=== PATIENT | female | born 1925 | race Caucasian/White ===

== ENCOUNTER 2016-10-25 21:11 | Inpatient (IN) | payer MEDICARE ==
[~2016-10-25] VITALS: Ht 172.7 cm; Wt 77.3 kg
[~2016-10-25 21:11] MED LIST: ACET325T9 PO; CALC-474 PO; DABI150C PO; DABI75CA3 PO; ERGO500027 PO; FAMO20TA5 PO; FURO-69 PO; HYDR-2762 PO; LORA2TAB PO; LOSA50TA2 PO; MAGN400O7 PO; MELA3TAB2 PO; METO25TA4 PO; METO50TA2 PO; MULT1TAB52 PO; RANI150T6 PO; SERT100T PO; ZOLP5TAB PO
--- NOTE | 2016-10-25 21:46 | PHYS DOC ---
Past Medical History Past Medical History: A-Fib, Anxiety, Cancer, CHF, Depression, GERD, Hypertension, Other Additional Past Medical Histor: RECTAL CANCER, OSTEOPOROSIS, GOUT Past Surgical History: Cancer Surgery, Other Additional Past Surgical Histo: COLOSTOMY Alcohol Use: None Drug Use: None Adult General Chief Complaint Chief Complaint: OSTOMY PROBLEM HPI HPI Patient is a 89 year old female who presents with complaint of blood from ostomy site. Patient was brought to the emergency department by EMS from [facility] after patient was found to have stool mixed with blood coming from her colostomy. Staff did not note any evidence of bleeding from the surface of the stoma and thus sent the patient to the emergency department for further evaluation. Patient has history of colon cancer status post left-sided colectomy. Patient follows with Dr. Jalloh at [facility] currently. The patient denies any pain, nausea, and states that currently she feels at her baseline state of health. Review of Systems Review of Systems Constitutional: Denies fever or chills [] Eyes: Denies change in visual acuity, redness, or eye pain [] HENT: Denies nasal congestion or sore throat [] Respiratory: Denies cough or shortness of breath [] Cardiovascular: Denies chest pain or edema [] GI: Bleeding from colostomy, denies abdominal pain, nausea, or vomiting [] : Denies dysuria or hematuria [] Musculoskeletal: Denies back pain or joint pain [] Integument: Denies rash or skin lesions [] Neurologic: Denies headache, focal weakness or sensory changes [] Current Medications Current Medications Current Medications Medications (Trade) Dose Ordered Sig/Adam Start Time Stop Time Status Last Admin Dose Admin Sodium Chloride 500 ml @ 500 mls/hr Q1H 10/25/16 22:00 10/25/16 22:21 DC 10/25/16 22:20 500 MLS/HR Allergies Allergies Allergies Coded Allergies Type Severity Reaction Last Updated Verified iodine Allergy Intermediate HIVES 03/05/15 Yes Physical Exam Physical Exam Constitutional: Alert, afebrile, appears in chronically poor health. [] HENT: Normocephalic, atraumatic, bilateral external ears normal, oropharynx moist, no oral exudates, nose normal. [] Eyes: PERRLA, EOMI, conjunctiva normal, no discharge. [] Neck: Normal range of motion, no tenderness, supple, no stridor. [] Cardiovascular:Heart rate regular rhythm, no murmur [] Lungs & Thorax: Bilateral breath sounds clear to auscultation [] Abdomen: Left-sided colostomy, stoma appears pink, no active external bleeding, blood mixed with stool present in ostomy bag, abdomen is soft and nontender to palpation. [] Skin: Warm, dry, no erythema, no rash. [] Back: No tenderness, no CVA tenderness. [] Extremities: No tenderness, no cyanosis, no clubbing,1+ edema in the bilateral lower extremities. [] Neurologic: Alert and oriented X 3, normal motor function, normal sensory function, no focal deficits noted. [] Current Patient Data Vital Signs Vital Signs Date Time Temp Pulse Resp B/P (MAP) Pulse Ox O2 Delivery O2 Flow Rate FiO2 10/25/16 22:30 64 31 155/74 (101) 92 Room Air 10/25/16 21:15 97.6 97.6 Lab Values Laboratory Tests Test 10/25/16 21:38 10/25/16 22:00 10/25/16 22:29 10/25/16 22:33 Stool Occult Blood Positive (NEG) White Blood Count 8.1 x10^3/uL (4.0-11.0) Red Blood Count 5.00 x10^6/uL (3.50-5.40) Hemoglobin 15.9 g/dL (12.0-15.5) H Hematocrit 47.6 % (36.0-47.0) H Mean Corpuscular Volume 95 fL (79-100) Mean Corpuscular Hemoglobin 32 pg (25-35) Mean Corpuscular Hemoglobin Concent 34 g/dL (31-37) Red Cell Distribution Width 14.0 % (11.5-14.5) Platelet Count 210 x10^3/uL (140-400) Neutrophils (%) (Auto) 70 % (31-73) Lymphocytes (%) (Auto) 21 % (24-48) L Monocytes (%) (Auto) 6 % (0-9) Eosinophils (%) (Auto) 2 % (0-3) Basophils (%) (Auto) 0 % (0-3) Neutrophils # (Auto) 5.7 x10^3uL (1.8-7.7) Lymphocytes # (Auto) 1.7 x10^3/uL (1.0-4.8) Monocytes # (Auto) 0.5 x10^3/uL (0.0-1.1) Eosinophils # (Auto) 0.2 x10^3/uL (0.0-0.7) Basophils # (Auto) 0.0 x10^3/uL (0.0-0.2) Urine Collection Type U cath Urine Color Red Urine Clarity Turbid Urine pH 7.0 Urine Specific [place] 1.020 Urine Protein 100 mg/dL (NEG-TRACE) Urine Glucose (UA) Negative mg/dL (NEG) Urine Ketones (Stick) 15 mg/dL (NEG) Urine Blood Large (NEG) Urine Nitrite Positive (NEG) Urine Bilirubin Moderate (NEG) Urine Urobilinogen Dipstick 1.0 mg/dL (0.2 mg/dL) Urine Leukocyte Esterase Large (NEG) Urine RBC Tntc /HPF (0-2) Urine WBC Tntc /HPF (0-4) Urine Squamous Epithelial Cells Few /LPF Urine Bacteria Many /HPF (0-FEW) Urine Hyaline Casts Few /HPF Urine Mucus Slight /LPF Prothrombin Time 18.8 SEC (11.7-14.0) H Prothrombin Time INR 1.7 (0.8-1.1) H PTT 62 SEC (24-38) H Sodium Level 144 mmol/L (136-145) Potassium Level 4.1 mmol/L (3.5-5.1) Chloride Level 106 mmol/L (98-107) Carbon Dioxide Level 34 mmol/L (21-32) H Anion Gap 4 (6-14) L Blood Urea Nitrogen 19 mg/dL (7-20) Creatinine 1.1 mg/dL (0.6-1.0) H Estimated GFR (Cockcroft-Gault) 46.8 BUN/Creatinine Ratio 17 (6-20) Glucose Level 134 mg/dL (70-99) H Calcium Level 9.5 mg/dL (8.5-10.1) Total Bilirubin 0.4 mg/dL (0.2-1.0) Aspartate Amino Transferase (AST) 19 U/L (15-37) Alanine Aminotransferase (ALT) 19 U/L (14-59) Alkaline Phosphatase 79 U/L (46-116) Total Protein 7.4 g/dL (6.4-8.2) Albumin 3.0 g/dL (3.4-5.0) L Albumin/Globulin Ratio 0.7 (1.0-1.7) L Laboratory Tests 10/25/16 22:00 Laboratory Tests 10/25/16 22:33 EKG EKG Not performed [] Radiology/Procedures Radiology/Procedures 3 view acute abdominal series interpreted by me: No pulmonary infiltrates or effusions, no free air under the diaphragm, distended loops of large and small bowel consistent with ileus [] Course & Med Decision Making Course & Med Decision Making Pertinent Labs and Imaging studies reviewed. (See chart for details) Patient started on IV fluids in the emergency department. Patient was found to have evidence of urinary tract infection and started on IV Rocephin for treatment. Due to presence of GI bleeding and reported significant blood loss from correction, the patient will need admission to the hospital for repeat lab work and further observation to ensure resolution of bleeding. I spoke with Dr. Morse who was on-call for Dr. Jalloh and she accepted care patient in hospital. A consult was placed to Dr. Stephen of gastroenterology to follow with patient in hospital. Dragon Disclaimer Dragon Disclaimer This electronic medical record was generated, in whole or in part, using a voice recognition dictation system. Departure Departure Impression: Primary Impression: Acute GI bleeding Additional Impression: Urinary tract infection Disposition: 09 ADMITTED INPATIENT Admitting Physician: Monika Morse Condition: GUARDED Referrals: OSBALDO JALLOH MD (PCP) Problem Qualifiers Additional Impression: Urinary tract infection Urinary tract infection type: site unspecified Hematuria presence: with hematuria Qualified Codes: N39.0 - Urinary tract infection, site not specified ; R31.9 - Hematuria, unspecified SWAPNIL SEGAL MD Oct 25, 2016 21:46
[2016-10-25] MEDS ORDERED: IV NORMAL SALINE 500ML BAG 500 ML IV SCH (22:00)
[2016-10-25 22:17] LABS: BASO % 0 % (0-3); EOS % 2 % (0-3); HEMATOCRIT 47.6 % (36.0-47.0); HEMOGLOBIN 15.9 g/dL (12.0-15.5); LYMPH # 1.7 x10^3/uL (1.0-4.8); LYMPH % 21 % (24-48); MEAN CORPUSCULAR HEMOGLOBIN 32 pg (25-35); MEAN CORPUSCULAR HGB CONC 34 g/dL (31-37); MEAN CORPUSCULAR VOLUME 95 fL (79-100); MONO % 6 % (0-9); NEUT % 70 % (31-73); PLATELET COUNT 210 x10^3/uL (140-400); WHITE BLOOD COUNT 8.1 x10^3/uL (4.0-11.0)
[2016-10-25 22:22] LABS: NEG OBC FOB NEG; POS OBC FOB POS
[2016-10-25 22:39] LABS: BILIRUBIN,URINE MODERATE (NEG); GLUCOSE,URINE NEGATIVE (NEG); NITRITE,URINE POSITIVE (NEG); PROTEIN,URINE 100 mg/dL (NEG-TRACE)
[2016-10-25 22:43] LABS: BACTERIA,URINE MANY /HPF (0-FEW); RBC,URINE TNTC /HPF (0-2); SQUAMOUS EPITHELIAL CELL,UR FEW /LPF; WBC,URINE TNTC /HPF (0-4)
[2016-10-25 23:07] LABS: CALCIUM 9.5 mg/dL (8.5-10.1); CREATININE 1.1 mg/dL (0.6-1.0); GFR 46.8; POTASSIUM 4.1 mmol/L (3.5-5.1)
[2016-10-25 23:10] LABS: INR 1.7 (0.8-1.1); PROTHROMBIN TIME PATIENT 18.8 SEC (11.7-14.0)
[2016-10-25 23:13] LABS: ALBUMIN/GLOBULIN RATIO 0.7 (1.0-1.7); TOTAL BILIRUBIN 0.4 mg/dL (0.2-1.0); TOTAL PROTEIN 7.4 g/dL (6.4-8.2)
[2016-10-26] VITALS (7 sets, daily range): BP systolic 123–146; BP diastolic 66–92
[2016-10-26] MEDS ORDERED: ONDANSETRON PF 4 MG/2 ML VIAL. IV PRN (00:30)
[2016-10-26] MEDS: IV NORMAL SALINE 1000ML BAG 1,000 ML IV SCH ×3 (01:30→20:30)
[2016-10-26] MEDS ORDERED: ONDA4TAB7 PO (02:08)
[2016-10-26] MEDS ORDERED: FAMO20TA5 PO (02:08)
[2016-10-26] MEDS ORDERED: CHOL10003 PO (02:08)
[2016-10-26] MEDS ORDERED: MAGN400T3 PO (02:08)
[2016-10-26] MEDS ORDERED: SERT50TA8 PO (02:08)
[2016-10-26] MEDS ORDERED: LORA0.5T96 PO (02:08)
[2016-10-26] MEDS ORDERED: GUAI5SYR PO (02:08)
[2016-10-26] MEDS ORDERED: MULT-114 PO (02:08)
--- NOTE | 2016-10-26 08:35 | RAD ---
Examination: Acute abdomen series History: History of bleed into the colostomy Comparison: 12/26/2012 Findings: The cardiomediastinal silhouette grossly appears unremarkable. There is no acute infiltrate or visualized pneumothorax. Mild air distended bowel loops in the abdomen likely secondary to ileus. A right hip hardware identified. Osseous demineralization. Moderate degenerative changes thoraco lumbar spine. Impression: 1. No acute cardiopulmonary findings. 2. Mild air distended bowel loops likely secondary to ileus.
--- NOTE | 2016-10-26 12:19 | PDOC1 ---
History and Physical Date of Admission Date of Admission DATE: 10/26/16 TIME: 12:09 Identification/Chief Complaint Chief Complaint blood per colostomy tube. noted to have pyuria. Problems: Source Source: Chart review, Patient History of Present Illness History of Present Illness 89 year old white female resident of a [facility] with dementia and a colostomy with history of rectal cancer and who has chronic atrial fibrillation treated with pradaxa noted to have blood in colostomy mixed with stoiol and sent to [facility] ER. noted to have heme positive stool . not anemic. noted to have pyuria and was started on iv rocephin., poor historian. denies abdominal pain . Past Medical History Cardiovascular: AFIB, HTN, Other (chronic diastolic congestive heart failure) CENTRAL NERVOUS SYSTEM: Other (dementia) GI: Other (rectal cancer) Psych: Depression Musculoskeletal: Other (osteoarthritis) Rheumatologic: Gout, Other Infectious disease: Other (history of uti) Past Surgical History Past Surgical History: Other (colostomy) Family History Family History not contributory Social History Smoke: No ALCOHOL: none Drugs: None Current Problem List Problem List Problems Medical Problems: (1) Acute GI bleeding Status: Acute (2) Urinary tract infection Status: Acute Problems: Current Medications Current Medications Current Medications Sodium Chloride 500 ml @ 500 mls/hr Q1H IV Last administered on 10/25/16 22:20 ; Start 10/25/16 at 22:00; Stop 10/25/16 at 22:21; Status DC Ondansetron HCl (Zofran) 4 mg PRN Q8HRS PRN IV NAUSEA/VOMITING; Start 10/26/16 at 00:30; Stop 10/27/16 at 00:29 Sodium Chloride 1,000 ml @ 100 mls/hr Q10H IV Last administered on 10/26/16 01 :30; Start 10/26/16 at 00:30; Stop 10/27/16 at 00:29 Ceftriaxone Sodium 1 gm/ Sodium Chloride 50 ml @ 100 mls/hr Q24H IV ; Start 10/26/16 at 23:00 Ceftriaxone Sodium 50 ml @ 100 mls/hr 1X ONCE IV Last administered on 00:48; Start 10/26/16 at 01:00; Stop 10/26/16 at 01:29; Status DC Active Scripts Active Pradaxa (Dabigatran Etexilate Mesylate) 75 Mg Capsule 75 Mg PO BID Lasix (Furosemide) 20 Mg Tablet 20 Mg PO DAILY Reported Zofran (Ondansetron Hcl) 4 Mg Tablet 1 Tab PO PRN Q6HRS PRN Vitamin D3 (Cholecalciferol (Vitamin D3)) 1,000 Unit Tablet 3,000 Unit PO DAILY Sertraline Hcl 50 Mg Tablet 50 Mg PO HS Multivitamins With Minerals (Multivitamin With Minerals) 1 Each Tablet 1 Each PO DAILY Magnesium Oxide 400 Mg Tablet 1 Tab PO DAILY Guaifenesin Dm Syrup (Guaifenesin/Dextromethorphan) 5 Ml Syrup 5 Ml PO PRN Q4HRS PRN Ativan (Lorazepam) 0.5 Mg Tablet 0.5 Mg PO BID Famotidine 20 Mg Tablet 20 Mg PO HS Tylenol (Acetaminophen) 325 Mg Tablet 1-2 Tab PO PRN Metoprolol Tartrate 25 Mg Tablet 1 Tab PO BID Allergies Allergies: Coded Allergies: iodine (Verified Allergy, Intermediate, HIVES, 03/05/15) ROS Review of System other ROS negative Gastrointestinal: Yes Other (blood in colostomy) Physical Exam General: Alert HEENT: Atraumatic Lungs: Clear to auscultation Heart: S1S2, no murmurs Abdomen: Soft, No tenderness, No hepatosplenomegaly, Other (colostomy with small amount of blood tinged liquid) Extremities: No edema Skin: No rashes Neuro: Normal speech, Other (does not know correct year or month or recite name of current president of [facility]) Psych/Mental Status: Mood NL Vitals Vitals Vital Signs Date Time Temp Pulse Resp B/P (MAP) Pulse Ox O2 Delivery O2 Flow Rate FiO2 10/26/16 11:00 97.7 60 18 139/73 (95) 94 Room Air 97.7 Labs Labs Laboratory Tests Test 10/25/16 21:38 10/25/16 22:00 10/25/16 22:29 10/25/16 22:33 Stool Occult Blood Positive (NEG) White Blood Count 8.1 x10^3/uL (4.0-11.0) Red Blood Count 5.00 x10^6/uL (3.50-5.40) Hemoglobin 15.9 g/dL (12.0-15.5) Hematocrit 47.6 % (36.0-47.0) Mean Corpuscular Volume 95 fL (79-100) Mean Corpuscular Hemoglobin 32 pg (25-35) Mean Corpuscular Hemoglobin Concent 34 g/dL (31-37) Red Cell Distribution Width 14.0 % (11.5-14.5) Platelet Count 210 x10^3/uL (140-400) Neutrophils (%) (Auto) 70 % (31-73) Lymphocytes (%) (Auto) 21 % (24-48) Monocytes (%) (Auto) 6 % (0-9) Eosinophils (%) (Auto) 2 % (0-3) Basophils (%) (Auto) 0 % (0-3) Neutrophils # (Auto) 5.7 x10^3uL (1.8-7.7) Lymphocytes # (Auto) 1.7 x10^3/uL (1.0-4.8) Monocytes # (Auto) 0.5 x10^3/uL (0.0-1.1) Eosinophils # (Auto) 0.2 x10^3/uL (0.0-0.7) Basophils # (Auto) 0.0 x10^3/uL (0.0-0.2) Urine Collection Type U cath Urine Color Red Urine Clarity Turbid Urine pH 7.0 Urine Specific [place] 1.020 Urine Protein 100 mg/dL (NEG-TRACE) Urine Glucose (UA) Negative mg/dL (NEG) Urine Ketones (Stick) 15 mg/dL (NEG) Urine Blood Large (NEG) Urine Nitrite Positive (NEG) Urine Bilirubin Moderate (NEG) Urine Urobilinogen Dipstick 1.0 mg/dL (0.2 mg/dL) Urine Leukocyte Esterase Large (NEG) Urine RBC Tntc /HPF (0-2) Urine WBC Tntc /HPF (0-4) Urine Squamous Epithelial Cells Few /LPF Urine Bacteria Many /HPF (0-FEW) Urine Hyaline Casts Few /HPF Urine Mucus Slight /LPF Prothrombin Time 18.8 SEC (11.7-14.0) Prothromb Time International Ratio 1.7 (0.8-1.1) Activated Partial Thromboplast Time 62 SEC (24-38) Sodium Level 144 mmol/L (136-145) Potassium Level 4.1 mmol/L (3.5-5.1) Chloride Level 106 mmol/L (98-107) Carbon Dioxide Level 34 mmol/L (21-32) Anion Gap 4 (6-14) Blood Urea Nitrogen 19 mg/dL (7-20) Creatinine 1.1 mg/dL (0.6-1.0) Estimated GFR (Cockcroft-Gault) 46.8 BUN/Creatinine Ratio 17 (6-20) Glucose Level 134 mg/dL (70-99) Calcium Level 9.5 mg/dL (8.5-10.1) Total Bilirubin 0.4 mg/dL (0.2-1.0) Aspartate Amino Transf (AST/SGOT) 19 U/L (15-37) Alanine Aminotransferase (ALT/SGPT) 19 U/L (14-59) Alkaline Phosphatase 79 U/L (46-116) Total Protein 7.4 g/dL (6.4-8.2) Albumin 3.0 g/dL (3.4-5.0) Albumin/Globulin Ratio 0.7 (1.0-1.7) Laboratory Tests Test 10/25/16 21:38 10/25/16 22:00 10/25/16 22:29 10/25/16 22:33 Stool Occult Blood Positive (NEG) White Blood Count 8.1 x10^3/uL (4.0-11.0) Red Blood Count 5.00 x10^6/uL (3.50-5.40) Hemoglobin 15.9 g/dL (12.0-15.5) Hematocrit 47.6 % (36.0-47.0) Mean Corpuscular Volume 95 fL (79-100) Mean Corpuscular Hemoglobin 32 pg (25-35) Mean Corpuscular Hemoglobin Concent 34 g/dL (31-37) Red Cell Distribution Width 14.0 % (11.5-14.5) Platelet Count 210 x10^3/uL (140-400) Neutrophils (%) (Auto) 70 % (31-73) Lymphocytes (%) (Auto) 21 % (24-48) Monocytes (%) (Auto) 6 % (0-9) Eosinophils (%) (Auto) 2 % (0-3) Basophils (%) (Auto) 0 % (0-3) Neutrophils # (Auto) 5.7 x10^3uL (1.8-7.7) Lymphocytes # (Auto) 1.7 x10^3/uL (1.0-4.8) Monocytes # (Auto) 0.5 x10^3/uL (0.0-1.1) Eosinophils # (Auto) 0.2 x10^3/uL (0.0-0.7) Basophils # (Auto) 0.0 x10^3/uL (0.0-0.2) Urine Collection Type U cath Urine Color Red Urine Clarity Turbid Urine pH 7.0 Urine Specific [place] 1.020 Urine Protein 100 mg/dL (NEG-TRACE) Urine Glucose (UA) Negative mg/dL (NEG) Urine Ketones (Stick) 15 mg/dL (NEG) Urine Blood Large (NEG) Urine Nitrite Positive (NEG) Urine Bilirubin Moderate (NEG) Urine Urobilinogen Dipstick 1.0 mg/dL (0.2 mg/dL) Urine Leukocyte Esterase Large (NEG) Urine RBC Tntc /HPF (0-2) Urine WBC Tntc /HPF (0-4) Urine Squamous Epithelial Cells Few /LPF Urine Bacteria Many /HPF (0-FEW) Urine Hyaline Casts Few /HPF Urine Mucus Slight /LPF Prothrombin Time 18.8 SEC (11.7-14.0) Prothromb Time International Ratio 1.7 (0.8-1.1) Activated Partial Thromboplast Time 62 SEC (24-38) Sodium Level 144 mmol/L (136-145) Potassium Level 4.1 mmol/L (3.5-5.1) Chloride Level 106 mmol/L (98-107) Carbon Dioxide Level 34 mmol/L (21-32) Anion Gap 4 (6-14) Blood Urea Nitrogen 19 mg/dL (7-20) Creatinine 1.1 mg/dL (0.6-1.0) Estimated GFR (Cockcroft-Gault) 46.8 BUN/Creatinine Ratio 17 (6-20) Glucose Level 134 mg/dL (70-99) Calcium Level 9.5 mg/dL (8.5-10.1) Total Bilirubin 0.4 mg/dL (0.2-1.0) Aspartate Amino Transf (AST/SGOT) 19 U/L (15-37) Alanine Aminotransferase (ALT/SGPT) 19 U/L (14-59) Alkaline Phosphatase 79 U/L (46-116) Total Protein 7.4 g/dL (6.4-8.2) Albumin 3.0 g/dL (3.4-5.0) Albumin/Globulin Ratio 0.7 (1.0-1.7) Images Images acute abdominal series negative VTE Prophylaxis Ordered VTE Prophylaxis Devices: Yes VTE Pharmacological Prophylaxi: No Assessment/Plan Assessment/Plan acute lower GI bleed. blood tinge liquid noted in colostomy pyuria. suspect uti colostomy with history of rectal cancer dementia chronic diastolic congestive heart failure chronic atrial fibrillation hypertension PLAN consult dr. Stephen await urine culture continue iv rocephin clear liquid diet d/c pradaxa labs tomorrow d/c iv fluids ALEX SERRANO MD Oct 26, 2016 12:19
[2016-10-26] MEDS ORDERED: ONDANSETRON ODT 4 MG TAB.RAPDIS. PO PRN (12:30)
[2016-10-26] MEDS: LORazepam 0.5 MG TABLET PO SCH ×2 (13:12→20:08)
[2016-10-26] MEDS: MULTIVITAMIN with MINERAL TABLET. PO SCH (13:12)
[2016-10-26] MEDS: MAGNESIUM OXIDE 400 MG TABLET PO SCH (13:12)
[2016-10-26] MEDS: CHOLECALCIFEROL (VITAMIN D3) 1,000 UNIT TABLET PO SCH (13:13)
[2016-10-26] MEDS: METOPROLOL TART IMMED RELEASE 25 MG TABLET. PO SCH ×2 (13:13→20:11)
[2016-10-26 13:18] LABS: CALCIUM 8.2 mg/dL (8.5-10.1); CREATININE 0.9 mg/dL (0.6-1.0); POTASSIUM 4.5 mmol/L (3.5-5.1)
[2016-10-26] MEDS: ACETAMINOPHEN 325 MG TABLET. PO PRN (13:22)
--- NOTE | 2016-10-26 14:45 | PDOC2 ---
CONSULT Date of Consult Date of Consult DATE: 10/26/16 TIME: 14:41 Reason for Consult Reason for Consult: Colostomy bleeding Identification/Chief Complaint Chief Complaint Colostomy bleeding Problems: History of Present Illness Reason for Visit: 89 year old patient with dementia admitted with confusion and possible bleeding via colostomy. Hg 15.9. No pain is noted. Weight and appetite are stable. She otherwise has no additional complaints. Past Medical History Cardiovascular: AFIB, HTN, Other (chronic diastolic congestive heart failure) CENTRAL NERVOUS SYSTEM: Dementia, Other (dementia) GI: Other (rectal cancer) Heme/Onc: Iron deficiency Anemia Psych: Depression Musculoskeletal: Other (osteoarthritis) Rheumatologic: Gout, Other Infectious disease: Other (history of uti) Past Surgical History Past Surgical History: Colon Resection, Other (colostomy) Social History No ALCOHOL: none Drugs: None Current Problem List Problem List Problems Medical Problems: (1) Acute GI bleeding Status: Acute (2) Urinary tract infection Status: Acute Current Medications Current Medications Current Medications Sodium Chloride 500 ml @ 500 mls/hr Q1H IV Last administered on 10/25/16 22:20 ; Start 10/25/16 at 22:00; Stop 10/25/16 at 22:21; Status DC Ondansetron HCl (Zofran) 4 mg PRN Q8HRS PRN IV NAUSEA/VOMITING; Start 10/26/16 at 00:30; Stop 10/27/16 at 00:29 Sodium Chloride 1,000 ml @ 100 mls/hr Q10H IV Last administered on 10/26/16 01 :30; Start 10/26/16 at 00:30; Stop 10/27/16 at 00:29 Ceftriaxone Sodium 1 gm/ Sodium Chloride 50 ml @ 100 mls/hr Q24H IV ; Start 10/26/16 at 23:00 Ceftriaxone Sodium 50 ml @ 100 mls/hr 1X ONCE IV Last administered on 00:48; Start 10/26/16 at 01:00; Stop 10/26/16 at 01:29; Status DC Acetaminophen (Tylenol) 650 mg PRN Q6HRS PRN PO MILD PAIN / TEMP Last administered on 10/26/16 13:22; Start 10/26/16 at 12:30 Lorazepam (Ativan) 0.5 mg BID PO Last administered on 10/26/16 13:12; Start 10/26/16 at 13:00 Famotidine (Pepcid) 20 mg QHS PO ; Start 10/26/16 at 21:00 Magnesium Oxide (Magnesium Oxide) 400 mg DAILY PO Last administered on 13:12; Start 10/26/16 at 13:00 Metoprolol Tartrate (Lopressor) 25 mg BID PO Last administered on 10/26/16 13: 13; Start 10/26/16 at 13:00 Multivitamins (Thera M Plus) 1 tab DAILY PO Last administered on 10/26/16 13:12 ; Start 10/26/16 at 13:00 Sertraline HCl (Zoloft) 75 mg QHS PO ; Start 10/26/16 at 21:00 Vitamin D (Vitamin D3) 3,000 unit DAILY PO Last administered on 10/26/16 13:13 ; Start 10/26/16 at 13:00 Ondansetron HCl (Zofran Odt) 4 mg PRN Q6HRS PRN PO NAUSEA/VOMITING; Start at 12:30 Active Scripts Active Pradaxa (Dabigatran Etexilate Mesylate) 75 Mg Capsule 75 Mg PO BID Lasix (Furosemide) 20 Mg Tablet 20 Mg PO DAILY Reported Zofran (Ondansetron Hcl) 4 Mg Tablet 1 Tab PO PRN Q6HRS PRN Vitamin D3 (Cholecalciferol (Vitamin D3)) 1,000 Unit Tablet 3,000 Unit PO DAILY Sertraline Hcl 50 Mg Tablet 50 Mg PO HS Multivitamins With Minerals (Multivitamin With Minerals) 1 Each Tablet 1 Each PO DAILY Magnesium Oxide 400 Mg Tablet 1 Tab PO DAILY Guaifenesin Dm Syrup (Guaifenesin/Dextromethorphan) 5 Ml Syrup 5 Ml PO PRN Q4HRS PRN Ativan (Lorazepam) 0.5 Mg Tablet 0.5 Mg PO BID Famotidine 20 Mg Tablet 20 Mg PO HS Tylenol (Acetaminophen) 325 Mg Tablet 1-2 Tab PO PRN Metoprolol Tartrate 25 Mg Tablet 1 Tab PO BID Allergies Allergies: Coded Allergies: iodine (Verified Allergy, Intermediate, HIVES, 03/05/15) Physical Exam General: Cooperative HEENT: Atraumatic Lungs: Clear to auscultation Heart: Regular rate, Normal S1, Normal S2 Abdomen: Normal bowel sounds, Soft, Other (colostomy with blood) Extremities: No tenderness/swelling (colostomy with blood) Vitals VITALS Vital Signs Date Time Temp Pulse Resp B/P (MAP) Pulse Ox O2 Delivery O2 Flow Rate FiO2 10/26/16 13:13 60 139/73 10/26/16 11:00 97.7 18 94 Room Air 97.7 Labs Labs Laboratory Tests Test 10/25/16 21:38 10/25/16 22:00 10/25/16 22:29 10/25/16 22:33 Stool Occult Blood Positive (NEG) White Blood Count 8.1 x10^3/uL (4.0-11.0) Red Blood Count 5.00 x10^6/uL (3.50-5.40) Hemoglobin 15.9 g/dL (12.0-15.5) Hematocrit 47.6 % (36.0-47.0) Mean Corpuscular Volume 95 fL (79-100) Mean Corpuscular Hemoglobin 32 pg (25-35) Mean Corpuscular Hemoglobin Concent 34 g/dL (31-37) Red Cell Distribution Width 14.0 % (11.5-14.5) Platelet Count 210 x10^3/uL (140-400) Neutrophils (%) (Auto) 70 % (31-73) Lymphocytes (%) (Auto) 21 % (24-48) Monocytes (%) (Auto) 6 % (0-9) Eosinophils (%) (Auto) 2 % (0-3) Basophils (%) (Auto) 0 % (0-3) Neutrophils # (Auto) 5.7 x10^3uL (1.8-7.7) Lymphocytes # (Auto) 1.7 x10^3/uL (1.0-4.8) Monocytes # (Auto) 0.5 x10^3/uL (0.0-1.1) Eosinophils # (Auto) 0.2 x10^3/uL (0.0-0.7) Basophils # (Auto) 0.0 x10^3/uL (0.0-0.2) Urine Collection Type U cath Urine Color Red Urine Clarity Turbid Urine pH 7.0 Urine Specific [place] 1.020 Urine Protein 100 mg/dL (NEG-TRACE) Urine Glucose (UA) Negative mg/dL (NEG) Urine Ketones (Stick) 15 mg/dL (NEG) Urine Blood Large (NEG) Urine Nitrite Positive (NEG) Urine Bilirubin Moderate (NEG) Urine Urobilinogen Dipstick 1.0 mg/dL (0.2 mg/dL) Urine Leukocyte Esterase Large (NEG) Urine RBC Tntc /HPF (0-2) Urine WBC Tntc /HPF (0-4) Urine Squamous Epithelial Cells Few /LPF Urine Bacteria Many /HPF (0-FEW) Urine Hyaline Casts Few /HPF Urine Mucus Slight /LPF Prothrombin Time 18.8 SEC (11.7-14.0) Prothromb Time International Ratio 1.7 (0.8-1.1) Activated Partial Thromboplast Time 62 SEC (24-38) Sodium Level 144 mmol/L (136-145) Potassium Level 4.1 mmol/L (3.5-5.1) Chloride Level 106 mmol/L (98-107) Carbon Dioxide Level 34 mmol/L (21-32) Anion Gap 4 (6-14) Blood Urea Nitrogen 19 mg/dL (7-20) Creatinine 1.1 mg/dL (0.6-1.0) Estimated GFR (Cockcroft-Gault) 46.8 BUN/Creatinine Ratio 17 (6-20) Glucose Level 134 mg/dL (70-99) Calcium Level 9.5 mg/dL (8.5-10.1) Total Bilirubin 0.4 mg/dL (0.2-1.0) Aspartate Amino Transf (AST/SGOT) 19 U/L (15-37) Alanine Aminotransferase (ALT/SGPT) 19 U/L (14-59) Alkaline Phosphatase 79 U/L (46-116) Total Protein 7.4 g/dL (6.4-8.2) Albumin 3.0 g/dL (3.4-5.0) Albumin/Globulin Ratio 0.7 (1.0-1.7) Test 10/26/16 12:20 Sodium Level 147 mmol/L (136-145) Potassium Level 4.5 mmol/L (3.5-5.1) Chloride Level 110 mmol/L (98-107) Carbon Dioxide Level 31 mmol/L (21-32) Anion Gap 6 (6-14) Blood Urea Nitrogen 15 mg/dL (7-20) Creatinine 0.9 mg/dL (0.6-1.0) Estimated GFR (Cockcroft-Gault) 59.0 Glucose Level 96 mg/dL (70-99) Calcium Level 8.2 mg/dL (8.5-10.1) Laboratory Tests Test 10/25/16 21:38 10/25/16 22:00 10/25/16 22:29 10/25/16 22:33 Stool Occult Blood Positive (NEG) White Blood Count 8.1 x10^3/uL (4.0-11.0) Red Blood Count 5.00 x10^6/uL (3.50-5.40) Hemoglobin 15.9 g/dL (12.0-15.5) Hematocrit 47.6 % (36.0-47.0) Mean Corpuscular Volume 95 fL (79-100) Mean Corpuscular Hemoglobin 32 pg (25-35) Mean Corpuscular Hemoglobin Concent 34 g/dL (31-37) Red Cell Distribution Width 14.0 % (11.5-14.5) Platelet Count 210 x10^3/uL (140-400) Neutrophils (%) (Auto) 70 % (31-73) Lymphocytes (%) (Auto) 21 % (24-48) Monocytes (%) (Auto) 6 % (0-9) Eosinophils (%) (Auto) 2 % (0-3) Basophils (%) (Auto) 0 % (0-3) Neutrophils # (Auto) 5.7 x10^3uL (1.8-7.7) Lymphocytes # (Auto) 1.7 x10^3/uL (1.0-4.8) Monocytes # (Auto) 0.5 x10^3/uL (0.0-1.1) Eosinophils # (Auto) 0.2 x10^3/uL (0.0-0.7) Basophils # (Auto) 0.0 x10^3/uL (0.0-0.2) Urine Collection Type U cath Urine Color Red Urine Clarity Turbid Urine pH 7.0 Urine Specific [place] 1.020 Urine Protein 100 mg/dL (NEG-TRACE) Urine Glucose (UA) Negative mg/dL (NEG) Urine Ketones (Stick) 15 mg/dL (NEG) Urine Blood Large (NEG) Urine Nitrite Positive (NEG) Urine Bilirubin Moderate (NEG) Urine Urobilinogen Dipstick 1.0 mg/dL (0.2 mg/dL) Urine Leukocyte Esterase Large (NEG) Urine RBC Tntc /HPF (0-2) Urine WBC Tntc /HPF (0-4) Urine Squamous Epithelial Cells Few /LPF Urine Bacteria Many /HPF (0-FEW) Urine Hyaline Casts Few /HPF Urine Mucus Slight /LPF Prothrombin Time 18.8 SEC (11.7-14.0) Prothromb Time International Ratio 1.7 (0.8-1.1) Activated Partial Thromboplast Time 62 SEC (24-38) Sodium Level 144 mmol/L (136-145) Potassium Level 4.1 mmol/L (3.5-5.1) Chloride Level 106 mmol/L (98-107) Carbon Dioxide Level 34 mmol/L (21-32) Anion Gap 4 (6-14) Blood Urea Nitrogen 19 mg/dL (7-20) Creatinine 1.1 mg/dL (0.6-1.0) Estimated GFR (Cockcroft-Gault) 46.8 BUN/Creatinine Ratio 17 (6-20) Glucose Level 134 mg/dL (70-99) Calcium Level 9.5 mg/dL (8.5-10.1) Total Bilirubin 0.4 mg/dL (0.2-1.0) Aspartate Amino Transf (AST/SGOT) 19 U/L (15-37) Alanine Aminotransferase (ALT/SGPT) 19 U/L (14-59) Alkaline Phosphatase 79 U/L (46-116) Total Protein 7.4 g/dL (6.4-8.2) Albumin 3.0 g/dL (3.4-5.0) Albumin/Globulin Ratio 0.7 (1.0-1.7) Test 10/26/16 12:20 Sodium Level 147 mmol/L (136-145) Potassium Level 4.5 mmol/L (3.5-5.1) Chloride Level 110 mmol/L (98-107) Carbon Dioxide Level 31 mmol/L (21-32) Anion Gap 6 (6-14) Blood Urea Nitrogen 15 mg/dL (7-20) Creatinine 0.9 mg/dL (0.6-1.0) Estimated GFR (Cockcroft-Gault) 59.0 Glucose Level 96 mg/dL (70-99) Calcium Level 8.2 mg/dL (8.5-10.1) Assessment/Plan Assessment/Plan Colostomy- with bleeding/hx colon cancer, most likely multifactoriali n etiology , medical therapy adivsed with normal hg and dementia, will follow. HERMINIA HERRERA MD Oct 26, 2016 14:45
--- NOTE | 2016-10-26 15:38 | EKG ---
[facility] [address] [place] [address] Test Date: 2016-10-26 Test Time: 14:31:06 Pat Name: CLAY CHILDRESS Department: Room: [facility] Gender: F Mascara Molder: : 1925 Requested By: ALEX SERRANO Order Number: [id number] Reading MD: Brionna Perez Measurements Intervals Orla Rate: 60 P: ND: QRS: -31 QRSD: 84 T: 16 QT: 460 QTc: 460 Interpretive Statements ATRIAL FIBRILLATION ABNORMAL LEFT AXIS DEVIATION ABNORMAL ECG Electronically Signed On 10-28-2016 20:07:05 CDT by Brionna Perez
[2016-10-26] MEDS: FAMOTIDINE 20 MG TABLET. PO SCH (20:08)
[2016-10-26] MEDS: SERTRALINE 25 MG TABLET. PO SCH (20:08)
[2016-10-27 03:01] VITALS: BP 140/84
--- NOTE | 2016-10-27 05:08 | ACF ---
Admission Forms Criteria GASTROINTESTINAL BLEEDING Clinical Indications for Inpatient Care (Place 'X' for any and all applicable criteria): Ongoing inpatient care may be indicated for gastrointestinal bleeding with ANY ONE of the following (4)(20)(21)(22)(23)(24): [X]I. Active bleeding (eg, fresh voluminous blood in emesis or nasogastric aspirate, or per rectum) [ ]II. Hemodynamic instability [ ]III. Anticoagulation therapy or coagulopathy ((eg, advanced liver disease, irreversible anticoagulation) [ ]IV. Ischemic colitis (22) [ ]V. Endoscopy showing arterial bleeding, adherent clot, nonbleeding visible vessel, varices, flat red spots, ulcer size greater than 2 cm, or portal hypertensive gastropathy [ ]. High-risk low platelet count [ ]VII. Anemia requiring inpatient care as indicated by ANY ONE of the following a)[ ] Cognitive impairment b)[ ] Syncope c)[ ] Heart failure d)[ ] Chest pain e)[ ] Dyspnea f)[ ] Other findings suggesting inadequate perfusion (eg, peripheral or myocardial ischemia, end organ dysfunction) [ ]VIII. High-risk low platelet count [ ]IX. Suspected variceal cause of bleeding as indicated by ANY ONE of the following(27)(28): a)[ ] Known varices b)[ ] Hepatomegaly or splenomegaly c)[ ] Ascites d)[ ] Jaundice or scleral icterus e)[ ] History of liver disease (eg, cirrhosis) f)[ ] Physical findings of portal hypertension (eg, caput medusa) g)[ ] Comorbid disorder indicating risk for portal vein thrombosis (eg , abdominal surgery, sepsis, shock, exchange transfusion, prior umbilical vein catheterization) Extended stay may be needed until ALL of the following are present(20)(38)(47): [ ]a) Hemodynamic stability [ ]b) No evidence of active bleeding (eg, stable Hematocrit) [ ]c) Platelet count, prothrombin time, and partial thromboplastin time acceptable for next level of care [ ]d) Surgical or other acute intervention not needed [ ]e) Oral hydration and diet tolerated The original [employer] content created by Lyndsey Schmid has been revised. The portions of the content which have been revised are identified through the use of italic text or in bold, and Lyndsey Schmid has neither reviewed nor approved the modified material. All other unmodified content is copyright [facility]. Please see references footnoted in the original [facility] edition 2016 Admission Criteria Met?: Yes KLEVER LAURENT Oct 27, 2016 05:08
[2016-10-27 05:24] LABS: BASO % 1 % (0-3); EOS % 3 % (0-3); HEMATOCRIT 42.4 % (36.0-47.0); HEMOGLOBIN 14.3 g/dL (12.0-15.5); LYMPH # 1.8 x10^3/uL (1.0-4.8); LYMPH % 31 % (24-48); MEAN CORPUSCULAR HEMOGLOBIN 32 pg (25-35); MEAN CORPUSCULAR HGB CONC 34 g/dL (31-37); MEAN CORPUSCULAR VOLUME 94 fL (79-100); MONO % 6 % (0-9); NEUT % 60 % (31-73); PLATELET COUNT 185 x10^3/uL (140-400); RED CELL DISTRIBUTION WIDTH 14.2 % (11.5-14.5); WHITE BLOOD COUNT 5.8 x10^3/uL (4.0-11.0)
[2016-10-27 05:46] LABS: CALCIUM 8.2 mg/dL (8.5-10.1); CREATININE 0.8 mg/dL (0.6-1.0); GFR 67.5; POTASSIUM 3.8 mmol/L (3.5-5.1)
[2016-10-27 07:00] VITALS: BP 142/65
[2016-10-27] MEDS: CHOLECALCIFEROL (VITAMIN D3) 1,000 UNIT TABLET PO SCH (07:47)
[2016-10-27] MEDS: METOPROLOL TART IMMED RELEASE 25 MG TABLET. PO SCH ×2 (07:48→20:36)
[2016-10-27] MEDS: LORazepam 0.5 MG TABLET PO SCH ×2 (07:48→20:35)
[2016-10-27] MEDS: MAGNESIUM OXIDE 400 MG TABLET PO SCH (07:48)
[2016-10-27] MEDS: MULTIVITAMIN with MINERAL TABLET. PO SCH (07:48)
--- NOTE | 2016-10-27 08:36 | PDOC ---
PROGRESS NOTES Subjective Subjective discussed with nurse. pulled out colostomy yesterday and replaced. has not had stool per colostomy but has bright red blood. off of pradaxa. no blood or stool in colostomy this morning.k comfotable. lab reviewed. hgb stable. coughs with drinking clear liquids. will order cxr adn--nd ST consult to evaluate swallow Objective Objective Vital Signs Date Time Temp Pulse Resp B/P (MAP) Pulse Ox O2 Delivery O2 Flow Rate FiO2 10/27/16 07:48 52 142/65 10/27/16 07:00 97.0 17 92 Room Air 97.0 Intake and Output 10/27/16 07:00 Intake Total 840 ml Balance 840 ml Intake Oral 840 ml # Voids 10 Physical Exam Abdomen: Soft, Other (colostomy. no blood or stool in bag) Heart: Normal S1, Normal S2 Extremities: No edema General: Alert HEENT: Atraumatic Lungs: Other (clear anteriorly) Neuro: Normal speech Psych/Mental Status: Mood NL Skin: No rashes Assessment Assessment Problemsacute lower GI bleed. blood tinge liquid noted in colostomy pyuria. suspect uti colostomy with history of rectal cancer dementia chronic diastolic congestive heart failure chronic atrial fibrillation hypertension cough with clear liquids Medical Problems: (1) Acute GI bleeding Status: Acute (2) Urinary tract infection Status: Acute Plan Plan of Care permanently off of pradaxa consult speech therapy monitor hgb continue iv rocephin await urine culture consult speech therapy cxr continue clear liquids Comment Review of Relevant I have reviewed the following items gaurang (where applicable) has been applied. Labs Laboratory Tests Test 10/25/16 21:38 10/25/16 22:00 10/25/16 22:29 10/25/16 22:33 Stool Occult Blood Positive (NEG) White Blood Count 8.1 x10^3/uL (4.0-11.0) Red Blood Count 5.00 x10^6/uL (3.50-5.40) Hemoglobin 15.9 g/dL (12.0-15.5) Hematocrit 47.6 % (36.0-47.0) Mean Corpuscular Volume 95 fL (79-100) Mean Corpuscular Hemoglobin 32 pg (25-35) Mean Corpuscular Hemoglobin Concent 34 g/dL (31-37) Red Cell Distribution Width 14.0 % (11.5-14.5) Platelet Count 210 x10^3/uL (140-400) Neutrophils (%) (Auto) 70 % (31-73) Lymphocytes (%) (Auto) 21 % (24-48) Monocytes (%) (Auto) 6 % (0-9) Eosinophils (%) (Auto) 2 % (0-3) Basophils (%) (Auto) 0 % (0-3) Neutrophils # (Auto) 5.7 x10^3uL (1.8-7.7) Lymphocytes # (Auto) 1.7 x10^3/uL (1.0-4.8) Monocytes # (Auto) 0.5 x10^3/uL (0.0-1.1) Eosinophils # (Auto) 0.2 x10^3/uL (0.0-0.7) Basophils # (Auto) 0.0 x10^3/uL (0.0-0.2) Urine Collection Type U cath Urine Color Red Urine Clarity Turbid Urine pH 7.0 Urine Specific [place] 1.020 Urine Protein 100 mg/dL (NEG-TRACE) Urine Glucose (UA) Negative mg/dL (NEG) Urine Ketones (Stick) 15 mg/dL (NEG) Urine Blood Large (NEG) Urine Nitrite Positive (NEG) Urine Bilirubin Moderate (NEG) Urine Urobilinogen Dipstick 1.0 mg/dL (0.2 mg/dL) Urine Leukocyte Esterase Large (NEG) Urine RBC Tntc /HPF (0-2) Urine WBC Tntc /HPF (0-4) Urine Squamous Epithelial Cells Few /LPF Urine Bacteria Many /HPF (0-FEW) Urine Hyaline Casts Few /HPF Urine Mucus Slight /LPF Prothrombin Time 18.8 SEC (11.7-14.0) Prothromb Time International Ratio 1.7 (0.8-1.1) Activated Partial Thromboplast Time 62 SEC (24-38) Sodium Level 144 mmol/L (136-145) Potassium Level 4.1 mmol/L (3.5-5.1) Chloride Level 106 mmol/L (98-107) Carbon Dioxide Level 34 mmol/L (21-32) Anion Gap 4 (6-14) Blood Urea Nitrogen 19 mg/dL (7-20) Creatinine 1.1 mg/dL (0.6-1.0) Estimated GFR (Cockcroft-Gault) 46.8 BUN/Creatinine Ratio 17 (6-20) Glucose Level 134 mg/dL (70-99) Calcium Level 9.5 mg/dL (8.5-10.1) Total Bilirubin 0.4 mg/dL (0.2-1.0) Aspartate Amino Transf (AST/SGOT) 19 U/L (15-37) Alanine Aminotransferase (ALT/SGPT) 19 U/L (14-59) Alkaline Phosphatase 79 U/L (46-116) Total Protein 7.4 g/dL (6.4-8.2) Albumin 3.0 g/dL (3.4-5.0) Albumin/Globulin Ratio 0.7 (1.0-1.7) Test 10/26/16 01:30 10/26/16 12:20 10/27/16 04:20 Nasal Screen MRSA (PCR) Negative (Negative) Sodium Level 147 mmol/L (136-145) 139 mmol/L (136-145) Potassium Level 4.5 mmol/L (3.5-5.1) 3.8 mmol/L (3.5-5.1) Chloride Level 110 mmol/L (98-107) 106 mmol/L (98-107) Carbon Dioxide Level 31 mmol/L (21-32) 29 mmol/L (21-32) Anion Gap 6 (6-14) 4 (6-14) Blood Urea Nitrogen 15 mg/dL (7-20) 13 mg/dL (7-20) Creatinine 0.9 mg/dL (0.6-1.0) 0.8 mg/dL (0.6-1.0) Estimated GFR (Cockcroft-Gault) 59.0 67.5 Glucose Level 96 mg/dL (70-99) 92 mg/dL (70-99) Calcium Level 8.2 mg/dL (8.5-10.1) 8.2 mg/dL (8.5-10.1) White Blood Count 5.8 x10^3/uL (4.0-11.0) Red Blood Count 4.50 x10^6/uL (3.50-5.40) Hemoglobin 14.3 g/dL (12.0-15.5) Hematocrit 42.4 % (36.0-47.0) Mean Corpuscular Volume 94 fL (79-100) Mean Corpuscular Hemoglobin 32 pg (25-35) Mean Corpuscular Hemoglobin Concent 34 g/dL (31-37) Red Cell Distribution Width 14.2 % (11.5-14.5) Platelet Count 185 x10^3/uL (140-400) Neutrophils (%) (Auto) 60 % (31-73) Lymphocytes (%) (Auto) 31 % (24-48) Monocytes (%) (Auto) 6 % (0-9) Eosinophils (%) (Auto) 3 % (0-3) Basophils (%) (Auto) 1 % (0-3) Neutrophils # (Auto) 3.5 x10^3uL (1.8-7.7) Lymphocytes # (Auto) 1.8 x10^3/uL (1.0-4.8) Monocytes # (Auto) 0.4 x10^3/uL (0.0-1.1) Eosinophils # (Auto) 0.2 x10^3/uL (0.0-0.7) Basophils # (Auto) 0.0 x10^3/uL (0.0-0.2) Laboratory Tests Test 10/26/16 12:20 10/27/16 04:20 Sodium Level 147 mmol/L (136-145) 139 mmol/L (136-145) Potassium Level 4.5 mmol/L (3.5-5.1) 3.8 mmol/L (3.5-5.1) Chloride Level 110 mmol/L (98-107) 106 mmol/L (98-107) Carbon Dioxide Level 31 mmol/L (21-32) 29 mmol/L (21-32) Anion Gap 6 (6-14) 4 (6-14) Blood Urea Nitrogen 15 mg/dL (7-20) 13 mg/dL (7-20) Creatinine 0.9 mg/dL (0.6-1.0) 0.8 mg/dL (0.6-1.0) Estimated GFR (Cockcroft-Gault) 59.0 67.5 Glucose Level 96 mg/dL (70-99) 92 mg/dL (70-99) Calcium Level 8.2 mg/dL (8.5-10.1) 8.2 mg/dL (8.5-10.1) White Blood Count 5.8 x10^3/uL (4.0-11.0) Red Blood Count 4.50 x10^6/uL (3.50-5.40) Hemoglobin 14.3 g/dL (12.0-15.5) Hematocrit 42.4 % (36.0-47.0) Mean Corpuscular Volume 94 fL (79-100) Mean Corpuscular Hemoglobin 32 pg (25-35) Mean Corpuscular Hemoglobin Concent 34 g/dL (31-37) Red Cell Distribution Width 14.2 % (11.5-14.5) Platelet Count 185 x10^3/uL (140-400) Neutrophils (%) (Auto) 60 % (31-73) Lymphocytes (%) (Auto) 31 % (24-48) Monocytes (%) (Auto) 6 % (0-9) Eosinophils (%) (Auto) 3 % (0-3) Basophils (%) (Auto) 1 % (0-3) Neutrophils # (Auto) 3.5 x10^3uL (1.8-7.7) Lymphocytes # (Auto) 1.8 x10^3/uL (1.0-4.8) Monocytes # (Auto) 0.4 x10^3/uL (0.0-1.1) Eosinophils # (Auto) 0.2 x10^3/uL (0.0-0.7) Basophils # (Auto) 0.0 x10^3/uL (0.0-0.2) Medications Current Medications Sodium Chloride 500 ml @ 500 mls/hr Q1H IV Last administered on 10/25/16 22:20 ; Start 10/25/16 at 22:00; Stop 10/25/16 at 22:21; Status DC Ondansetron HCl (Zofran) 4 mg PRN Q8HRS PRN IV NAUSEA/VOMITING; Start 10/26/16 at 00:30; Stop 10/27/16 at 00:29; Status DC Sodium Chloride 1,000 ml @ 100 mls/hr Q10H IV Last administered on 10/26/16 01 :30; Start 10/26/16 at 00:30; Stop 10/27/16 at 00:29; Status DC Ceftriaxone Sodium 1 gm/ Sodium Chloride 50 ml @ 100 mls/hr Q24H IV Last administered on 10/26/16 22:23; Start 10/26/16 at 23:00 Ceftriaxone Sodium 50 ml @ 100 mls/hr 1X ONCE IV Last administered on 00:48; Start 10/26/16 at 01:00; Stop 10/26/16 at 01:29; Status DC Acetaminophen (Tylenol) 650 mg PRN Q6HRS PRN PO MILD PAIN / TEMP Last administered on 10/26/16 13:22; Start 10/26/16 at 12:30 Lorazepam (Ativan) 0.5 mg BID PO Last administered on 10/27/16 07:48; Start at 13:00 Famotidine (Pepcid) 20 mg QHS PO Last administered on 10/26/16 20:08; Start 10/26/16 at 21:00 Magnesium Oxide (Magnesium Oxide) 400 mg DAILY PO Last administered on 07:48; Start 10/26/16 at 13:00 Metoprolol Tartrate (Lopressor) 25 mg BID PO Last administered on 10/27/16 07: 48; Start 10/26/16 at 13:00 Multivitamins (Thera M Plus) 1 tab DAILY PO Last administered on 10/27/16 07: 48; Start 10/26/16 at 13:00 Sertraline HCl (Zoloft) 75 mg QHS PO Last administered on 10/26/16 20:08; Start 10/26/16 at 21:00 Vitamin D (Vitamin D3) 3,000 unit DAILY PO Last administered on 10/27/16 07:47 ; Start 10/26/16 at 13:00 Ondansetron HCl (Zofran Odt) 4 mg PRN Q6HRS PRN PO NAUSEA/VOMITING; Start at 12:30 Active Scripts Active Pradaxa (Dabigatran Etexilate Mesylate) 75 Mg Capsule 75 Mg PO BID Lasix (Furosemide) 20 Mg Tablet 20 Mg PO DAILY Reported Zofran (Ondansetron Hcl) 4 Mg Tablet 1 Tab PO PRN Q6HRS PRN Vitamin D3 (Cholecalciferol (Vitamin D3)) 1,000 Unit Tablet 3,000 Unit PO DAILY Sertraline Hcl 50 Mg Tablet 50 Mg PO HS Multivitamins With Minerals (Multivitamin With Minerals) 1 Each Tablet 1 Each PO DAILY Magnesium Oxide 400 Mg Tablet 1 Tab PO DAILY Guaifenesin Dm Syrup (Guaifenesin/Dextromethorphan) 5 Ml Syrup 5 Ml PO PRN Q4HRS PRN Ativan (Lorazepam) 0.5 Mg Tablet 0.5 Mg PO BID Famotidine 20 Mg Tablet 20 Mg PO HS Tylenol (Acetaminophen) 325 Mg Tablet 1-2 Tab PO PRN Metoprolol Tartrate 25 Mg Tablet 1 Tab PO BID Vitals/I & O Vital Sign - Last 24 Hours 10/26/16 10/26/16 10/26/16 10/26/16 11:00 13:13 15:00 19:00 Temp 97.7 97.7 97.5 97.7 97.7 97.5 Pulse 60 60 60 58 Resp 18 18 20 B/P (MAP) 139/73 (95) 139/73 134/70 (91) 123/68 (86) Pulse Ox 94 94 92 O2 Delivery Room Air Room Air Room Air 10/26/16 10/26/16 10/26/16 10/27/16 20:00 20:11 23:00 03:01 Temp 98.8 98.7 98.8 98.7 Pulse 64 66 56 Resp 20 20 B/P (MAP) 122/78 126/66 (86) 140/84 (102) Pulse Ox 93 92 O2 Delivery Room Air Room Air Room Air 10/27/16 10/27/16 07:00 07:48 Temp 97.0 97.0 Pulse 52 52 Resp 17 B/P (MAP) 142/65 (90) 142/65 Pulse Ox 92 O2 Delivery Room Air Intake and Output 10/26/16 10/26/16 10/27/16 15:00 23:00 07:00 Intake Total 300 ml 420 ml 120 ml Balance 300 ml 420 ml 120 ml ALEX SERRANO MD Oct 27, 2016 08:36
--- NOTE | 2016-10-27 10:15 | RAD ---
Portable chest, 10/27/2016: History: Cough Comparison is made to a study from 10/25/2016. The patient is rotated to the right. The heart is mildly enlarged. There is calcific plaquing and tortuosity of the thoracic aorta. The pulmonary vascularity is normal. No pulmonary infiltrate is seen. No pleural fluid is evident. The bony structures are demineralized. IMPRESSION: 1. Cardiomegaly and aortic atherosclerosis. 2. No acute abnormality is detected.
[2016-10-27 10:47] VITALS: BP 121/74
--- NOTE | 2016-10-27 11:56 | PDOC ---
Subjective: Subjective: "I'm scared." Objective: Objective: Per RN - scant red blood in colostomy bag, no stool. Vital Signs: Vital Signs Date Time Temp Pulse Resp B/P (MAP) Pulse Ox O2 Delivery O2 Flow Rate FiO2 10/27/16 10:47 98.2 53 16 121/74 (90) Room Air 98.2 10/27/16 07:00 92 Labs: Laboratory Tests Test 10/26/16 12:20 10/27/16 04:20 Sodium Level 147 mmol/L 139 mmol/L Potassium Level 4.5 mmol/L 3.8 mmol/L Chloride Level 110 mmol/L 106 mmol/L Carbon Dioxide Level 31 mmol/L 29 mmol/L Anion Gap 6 4 Blood Urea Nitrogen 15 mg/dL 13 mg/dL Creatinine 0.9 mg/dL 0.8 mg/dL Estimated GFR (Cockcroft-Gault) 59.0 67.5 Glucose Level 96 mg/dL 92 mg/dL Calcium Level 8.2 mg/dL 8.2 mg/dL White Blood Count 5.8 x10^3/uL Red Blood Count 4.50 x10^6/uL Hemoglobin 14.3 g/dL Hematocrit 42.4 % Mean Corpuscular Volume 94 fL Mean Corpuscular Hemoglobin 32 pg Mean Corpuscular Hemoglobin Concent 34 g/dL Red Cell Distribution Width 14.2 % Platelet Count 185 x10^3/uL Neutrophils (%) (Auto) 60 % Lymphocytes (%) (Auto) 31 % Monocytes (%) (Auto) 6 % Eosinophils (%) (Auto) 3 % Basophils (%) (Auto) 1 % Neutrophils # (Auto) 3.5 x10^3uL Lymphocytes # (Auto) 1.8 x10^3/uL Monocytes # (Auto) 0.4 x10^3/uL Eosinophils # (Auto) 0.2 x10^3/uL Basophils # (Auto) 0.0 x10^3/uL 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 No s/s aspiration w/ multiple trials across consistencies, including continuous swallows thin liquid via straw. Timing & range of hyolaryngeal mvmt WFL. Anticipate safe & efficient PO intake w/ recommended diet. Recommendations: Dysphagia II diet ([facility] soft) w/ thin/regular liquids, c/w baseline diet per [facility] records. Modified solids indicated d/t limited dentition. No add'l ASSOC[employer]ATE PUBLISHER f/u indicated at this time. Pls reconsult if needs change. PE: GEN: NAD ABD: ostomy bag w/ air, I did not appreciate any blood at the time of my exam NEURO/PSYCH: probably confused A/P: H/o colon cancer s/p colostomy w/ bleeding -Hgb remains WNL -- Continue medical therapy/observation w/ normal Hgb. ANNALEE GAO Oct 27, 2016 11:56
[2016-10-27 14:56] VITALS: BP 121/62
[2016-10-27] MEDS: ACETAMINOPHEN 325 MG TABLET. PO PRN (17:09)
[2016-10-27 19:00] VITALS: BP 125/60
[2016-10-27] MEDS: SERTRALINE 25 MG TABLET. PO SCH (20:36)
[2016-10-27] MEDS: FAMOTIDINE 20 MG TABLET. PO SCH (20:36)
[2016-10-27 23:00] VITALS: BP 135/67
[2016-10-28 03:00] VITALS: BP 140/68
[2016-10-28 04:45] LABS: BASO # 0.1 x10^3/uL (0.0-0.2); BASO % 1 % (0-3); EOS % 2 % (0-3); HEMATOCRIT 42.6 % (36.0-47.0); HEMOGLOBIN 14.3 g/dL (12.0-15.5); LYMPH # 1.7 x10^3/uL (1.0-4.8); LYMPH % 32 % (24-48); MEAN CORPUSCULAR HEMOGLOBIN 32 pg (25-35); MEAN CORPUSCULAR HGB CONC 34 g/dL (31-37); MEAN CORPUSCULAR VOLUME 95 fL (79-100); MONO % 8 % (0-9); NEUT % 58 % (31-73); PLATELET COUNT 186 x10^3/uL (140-400); RED CELL DISTRIBUTION WIDTH 14.1 % (11.5-14.5); WHITE BLOOD COUNT 5.4 x10^3/uL (4.0-11.0)
[2016-10-28 05:26] LABS: CREATININE 0.9 mg/dL (0.6-1.0); POTASSIUM 3.9 mmol/L (3.5-5.1)
[2016-10-28 07:00] VITALS: BP 128/75
[2016-10-28] MEDS: MAGNESIUM OXIDE 400 MG TABLET PO SCH (08:05)
[2016-10-28] MEDS: CHOLECALCIFEROL (VITAMIN D3) 1,000 UNIT TABLET PO SCH (08:05)
[2016-10-28] MEDS: MULTIVITAMIN with MINERAL TABLET. PO SCH (08:05)
[2016-10-28] MEDS: LORazepam 0.5 MG TABLET PO SCH (08:06)
--- NOTE | 2016-10-28 08:31 | PDOC ---
PROGRESS NOTES Subjective Subjective FEELS WELL. EATING SOFT SOLID THIN LIQUID BREAKFAST. hgb stable. no further blood per colostomy. afebrile. urine culture negative. Objective Objective Vital Signs Date Time Temp Pulse Resp B/P (MAP) Pulse Ox O2 Delivery O2 Flow Rate FiO2 10/28/16 07:00 97.8 66 16 128/75 (92) 92 Room Air 97.8 Intake and Output 10/28/16 07:00 Intake Total 880 ml Balance 880 ml Intake Oral 830 ml IV Total 50 ml # Voids 5 Physical Exam Abdomen: Soft, Other (clear fluid in colostomy bag) Heart: Normal S1, Normal S2 Extremities: No edema General: Alert HEENT: Atraumatic Lungs: Clear to auscultation Neuro: Normal speech Psych/Mental Status: Mood NL Skin: No rashes Assessment Assessment Problems Medical Problems:acute lower GI bleed resolved. hgb stable pyuria. urine culture grew contaminant colostomy with history of rectal cancer dementia chronic diastolic congestive heart failure chronic atrial fibrillation hypertension (1) Acute GI bleeding Status: Acute (2) Urinary tract infection Status: Acute Plan Plan of Care d/c rhianna dismiss today to [place] Comment Review of Relevant I have reviewed the following items gaurang (where applicable) has been applied. Labs Laboratory Tests Test 10/26/16 12:20 10/27/16 04:20 10/28/16 03:40 Sodium Level 147 mmol/L (136-145) 139 mmol/L (136-145) 142 mmol/L (136-145) Potassium Level 4.5 mmol/L (3.5-5.1) 3.8 mmol/L (3.5-5.1) 3.9 mmol/L (3.5-5.1) Chloride Level 110 mmol/L (98-107) 106 mmol/L (98-107) 106 mmol/L (98-107) Carbon Dioxide Level 31 mmol/L (21-32) 29 mmol/L (21-32) 29 mmol/L (21-32) Anion Gap 6 (6-14) 4 (6-14) 7 (6-14) Blood Urea Nitrogen 15 mg/dL (7-20) 13 mg/dL (7-20) 12 mg/dL (7-20) Creatinine 0.9 mg/dL (0.6-1.0) 0.8 mg/dL (0.6-1.0) 0.9 mg/dL (0.6-1.0) Estimated GFR (Cockcroft-Gault) 59.0 67.5 59.0 Glucose Level 96 mg/dL (70-99) 92 mg/dL (70-99) 103 mg/dL (70-99) Calcium Level 8.2 mg/dL (8.5-10.1) 8.2 mg/dL (8.5-10.1) 9.0 mg/dL (8.5-10.1) White Blood Count 5.8 x10^3/uL (4.0-11.0) 5.4 x10^3/uL (4.0-11.0) Red Blood Count 4.50 x10^6/uL (3.50-5.40) 4.50 x10^6/uL (3.50-5.40) Hemoglobin 14.3 g/dL (12.0-15.5) 14.3 g/dL (12.0-15.5) Hematocrit 42.4 % (36.0-47.0) 42.6 % (36.0-47.0) Mean Corpuscular Volume 94 fL (79-100) 95 fL (79-100) Mean Corpuscular Hemoglobin 32 pg (25-35) 32 pg (25-35) Mean Corpuscular Hemoglobin Concent 34 g/dL (31-37) 34 g/dL (31-37) Red Cell Distribution Width 14.2 % (11.5-14.5) 14.1 % (11.5-14.5) Platelet Count 185 x10^3/uL (140-400) 186 x10^3/uL (140-400) Neutrophils (%) (Auto) 60 % (31-73) 58 % (31-73) Lymphocytes (%) (Auto) 31 % (24-48) 32 % (24-48) Monocytes (%) (Auto) 6 % (0-9) 8 % (0-9) Eosinophils (%) (Auto) 3 % (0-3) 2 % (0-3) Basophils (%) (Auto) 1 % (0-3) 1 % (0-3) Neutrophils # (Auto) 3.5 x10^3uL (1.8-7.7) 3.1 x10^3uL (1.8-7.7) Lymphocytes # (Auto) 1.8 x10^3/uL (1.0-4.8) 1.7 x10^3/uL (1.0-4.8) Monocytes # (Auto) 0.4 x10^3/uL (0.0-1.1) 0.4 x10^3/uL (0.0-1.1) Eosinophils # (Auto) 0.2 x10^3/uL (0.0-0.7) 0.1 x10^3/uL (0.0-0.7) Basophils # (Auto) 0.0 x10^3/uL (0.0-0.2) 0.1 x10^3/uL (0.0-0.2) Thyroid Stimulating Hormone (TSH) 3.836 uIU/mL (0.358-3.74) Laboratory Tests Test 10/28/16 03:40 White Blood Count 5.4 x10^3/uL (4.0-11.0) Red Blood Count 4.50 x10^6/uL (3.50-5.40) Hemoglobin 14.3 g/dL (12.0-15.5) Hematocrit 42.6 % (36.0-47.0) Mean Corpuscular Volume 95 fL (79-100) Mean Corpuscular Hemoglobin 32 pg (25-35) Mean Corpuscular Hemoglobin Concent 34 g/dL (31-37) Red Cell Distribution Width 14.1 % (11.5-14.5) Platelet Count 186 x10^3/uL (140-400) Neutrophils (%) (Auto) 58 % (31-73) Lymphocytes (%) (Auto) 32 % (24-48) Monocytes (%) (Auto) 8 % (0-9) Eosinophils (%) (Auto) 2 % (0-3) Basophils (%) (Auto) 1 % (0-3) Neutrophils # (Auto) 3.1 x10^3uL (1.8-7.7) Lymphocytes # (Auto) 1.7 x10^3/uL (1.0-4.8) Monocytes # (Auto) 0.4 x10^3/uL (0.0-1.1) Eosinophils # (Auto) 0.1 x10^3/uL (0.0-0.7) Basophils # (Auto) 0.1 x10^3/uL (0.0-0.2) Sodium Level 142 mmol/L (136-145) Potassium Level 3.9 mmol/L (3.5-5.1) Chloride Level 106 mmol/L (98-107) Carbon Dioxide Level 29 mmol/L (21-32) Anion Gap 7 (6-14) Blood Urea Nitrogen 12 mg/dL (7-20) Creatinine 0.9 mg/dL (0.6-1.0) Estimated GFR (Cockcroft-Gault) 59.0 Glucose Level 103 mg/dL (70-99) Calcium Level 9.0 mg/dL (8.5-10.1) Thyroid Stimulating Hormone (TSH) 3.836 uIU/mL (0.358-3.74) Microbiology 10/25/16 Urine Culture - Preliminary, Resulted 10/25/16 Urine Culture Result 1 (ERIBERTO) - Preliminary, Resulted Medications Current Medications Sodium Chloride 500 ml @ 500 mls/hr Q1H IV Last administered on 10/25/16 22:20 ; Start 10/25/16 at 22:00; Stop 10/25/16 at 22:21; Status DC Ondansetron HCl (Zofran) 4 mg PRN Q8HRS PRN IV NAUSEA/VOMITING; Start 10/26/16 at 00:30; Stop 10/27/16 at 00:29; Status DC Sodium Chloride 1,000 ml @ 100 mls/hr Q10H IV Last administered on 10/26/16 01 :30; Start 10/26/16 at 00:30; Stop 10/27/16 at 00:29; Status DC Ceftriaxone Sodium 1 gm/ Sodium Chloride 50 ml @ 100 mls/hr Q24H IV Last administered on 10/27/16 20:42; Start 10/26/16 at 23:00 Ceftriaxone Sodium 50 ml @ 100 mls/hr 1X ONCE IV Last administered on 00:48; Start 10/26/16 at 01:00; Stop 10/26/16 at 01:29; Status DC Acetaminophen (Tylenol) 650 mg PRN Q6HRS PRN PO MILD PAIN / TEMP Last administered on 10/27/16 17:09; Start 10/26/16 at 12:30 Lorazepam (Ativan) 0.5 mg BID PO Last administered on 10/28/16 08:06; Start at 13:00 Famotidine (Pepcid) 20 mg QHS PO Last administered on 10/27/16 20:36; Start at 21:00 Magnesium Oxide (Magnesium Oxide) 400 mg DAILY PO Last administered on 08:05; Start 10/26/16 at 13:00 Metoprolol Tartrate (Lopressor) 25 mg BID PO Last administered on 10/27/16 20: 36; Start 10/26/16 at 13:00 Multivitamins (Thera M Plus) 1 tab DAILY PO Last administered on 10/28/16 08: 05; Start 10/26/16 at 13:00 Sertraline HCl (Zoloft) 75 mg QHS PO Last administered on 10/27/16 20:36; Start 10/26/16 at 21:00 Vitamin D (Vitamin D3) 3,000 unit DAILY PO Last administered on 10/28/16 08:05 ; Start 10/26/16 at 13:00 Ondansetron HCl (Zofran Odt) 4 mg PRN Q6HRS PRN PO NAUSEA/VOMITING; Start at 12:30 Active Scripts Active Pradaxa (Dabigatran Etexilate Mesylate) 75 Mg Capsule 75 Mg PO BID Lasix (Furosemide) 20 Mg Tablet 20 Mg PO DAILY Reported Zofran (Ondansetron Hcl) 4 Mg Tablet 1 Tab PO PRN Q6HRS PRN Vitamin D3 (Cholecalciferol (Vitamin D3)) 1,000 Unit Tablet 3,000 Unit PO DAILY Sertraline Hcl 50 Mg Tablet 50 Mg PO HS Multivitamins With Minerals (Multivitamin With Minerals) 1 Each Tablet 1 Each PO DAILY Magnesium Oxide 400 Mg Tablet 1 Tab PO DAILY Guaifenesin Dm Syrup (Guaifenesin/Dextromethorphan) 5 Ml Syrup 5 Ml PO PRN Q4HRS PRN Ativan (Lorazepam) 0.5 Mg Tablet 0.5 Mg PO BID Famotidine 20 Mg Tablet 20 Mg PO HS Tylenol (Acetaminophen) 325 Mg Tablet 1-2 Tab PO PRN Metoprolol Tartrate 25 Mg Tablet 1 Tab PO BID Vitals/I & O Vital Sign - Last 24 Hours 10/27/16 10/27/16 10/27/16 10/27/16 10:47 14:56 19:00 19:05 Temp 98.2 98.2 98.8 98.2 98.2 98.8 Pulse 53 65 70 Resp 16 17 18 B/P (MAP) 121/74 (90) 121/62 (81) 125/60 (81) Pulse Ox 92 92 O2 Delivery Room Air Room Air Room Air Room Air 10/27/16 10/27/16 10/28/16 10/28/16 20:36 23:00 03:00 07:00 Temp 98.0 98.2 97.8 98.0 98.2 97.8 Pulse 70 80 65 66 Resp 18 18 16 B/P (MAP) 125/60 135/67 (89) 140/68 (92) 128/75 (92) Pulse Ox 95 93 92 O2 Delivery Room Air Room Air Room Air Intake and Output 10/27/16 10/27/16 10/28/16 15:00 23:00 07:00 Intake Total 240 ml 410 ml 230 ml Balance 240 ml 410 ml 230 ml Nutrition Consultation Dietary Evaluation: Recommendations by RD: Protein supplementation Comments: vanilla boost pudding bid Expected Outcomes/Goals: to meet > 75% est nutr needs Malnutrition Findings: Body Fat Depletion (Non Severe: Mild Depletion Weight Status: Underweight ALEX SERRANO MD Oct 28, 2016 08:31
--- NOTE | 2016-10-28 08:34 | DISCH ---
DISCHARGE INSTRUCTIONS Condition on Discharge Condition on Discharge: Stable Activity After Discharge Activity Instructions for Disc: Resume previous activity Diet after Discharge Diet after Discharge: Level II Dysph, Ground Liquid Texture: Thin Liquid Contacting the DR. after DC Call your doctor for: If your condition worsens Follow-Up Follow up with: jose rafael philippe physican at [facility] ALEX SERRANO MD Oct 28, 2016 08:34
--- NOTE | 2016-10-28 08:42 | PDOC3 ---
Discharge Summary Visit Information Date of Admission: Oct 25, 2016 Date of Discharge: Oct 28, 2016 Admitting Diagnosis: blood per colostomy Admitting Diagnosis Comment: 89 year old white female resident of [facility] with history of colostomy for colo-rectal cancer noted to have blood per colostomy at [facility]. had pyuira and urine culture negative so rocepihin stopped,. seen by GI doctor and hgb stable adn colostomy bleeding stopped with clear fluid in colostomy bag today. GI doctor felt colonoscopy not needed given advance age and dementia and stable hgb and bleeding stopped. pradaxa stopped due to GI bleed. Final Diagnosis Problemsacute lower GI bleed. blood tinge liquid noted in colostomy. bleeding resolved pyuria. urine culture grew contaminant colostomy with history of rectal cancer dementia chronic diastolic congestive heart failure chronic atrial fibrillation hypertension Medical Problems: (1) Acute GI bleeding Status: Acute (2) Urinary tract infection Status: Acute Brief Hospital Course Allergies Allergies Coded Allergies Type Severity Reaction Last Updated Verified iodine Allergy Intermediate HIVES 03/05/15 Yes Vital Signs Vital Signs Date Time Temp Pulse Resp B/P (MAP) Pulse Ox O2 Delivery O2 Flow Rate FiO2 10/28/16 07:00 97.8 66 16 128/75 (92) 92 Room Air 97.8 Lab Results Laboratory Tests Test 10/26/16 12:20 10/27/16 04:20 10/28/16 03:40 Sodium Level 147 mmol/L (136-145) 139 mmol/L (136-145) 142 mmol/L (136-145) Potassium Level 4.5 mmol/L (3.5-5.1) 3.8 mmol/L (3.5-5.1) 3.9 mmol/L (3.5-5.1) Chloride Level 110 mmol/L (98-107) 106 mmol/L (98-107) 106 mmol/L (98-107) Carbon Dioxide Level 31 mmol/L (21-32) 29 mmol/L (21-32) 29 mmol/L (21-32) Anion Gap 6 (6-14) 4 (6-14) 7 (6-14) Blood Urea Nitrogen 15 mg/dL (7-20) 13 mg/dL (7-20) 12 mg/dL (7-20) Creatinine 0.9 mg/dL (0.6-1.0) 0.8 mg/dL (0.6-1.0) 0.9 mg/dL (0.6-1.0) Estimated GFR (Cockcroft-Gault) 59.0 67.5 59.0 Glucose Level 96 mg/dL (70-99) 92 mg/dL (70-99) 103 mg/dL (70-99) Calcium Level 8.2 mg/dL (8.5-10.1) 8.2 mg/dL (8.5-10.1) 9.0 mg/dL (8.5-10.1) White Blood Count 5.8 x10^3/uL (4.0-11.0) 5.4 x10^3/uL (4.0-11.0) Red Blood Count 4.50 x10^6/uL (3.50-5.40) 4.50 x10^6/uL (3.50-5.40) Hemoglobin 14.3 g/dL (12.0-15.5) 14.3 g/dL (12.0-15.5) Hematocrit 42.4 % (36.0-47.0) 42.6 % (36.0-47.0) Mean Corpuscular Volume 94 fL (79-100) 95 fL (79-100) Mean Corpuscular Hemoglobin 32 pg (25-35) 32 pg (25-35) Mean Corpuscular Hemoglobin Concent 34 g/dL (31-37) 34 g/dL (31-37) Red Cell Distribution Width 14.2 % (11.5-14.5) 14.1 % (11.5-14.5) Platelet Count 185 x10^3/uL (140-400) 186 x10^3/uL (140-400) Neutrophils (%) (Auto) 60 % (31-73) 58 % (31-73) Lymphocytes (%) (Auto) 31 % (24-48) 32 % (24-48) Monocytes (%) (Auto) 6 % (0-9) 8 % (0-9) Eosinophils (%) (Auto) 3 % (0-3) 2 % (0-3) Basophils (%) (Auto) 1 % (0-3) 1 % (0-3) Neutrophils # (Auto) 3.5 x10^3uL (1.8-7.7) 3.1 x10^3uL (1.8-7.7) Lymphocytes # (Auto) 1.8 x10^3/uL (1.0-4.8) 1.7 x10^3/uL (1.0-4.8) Monocytes # (Auto) 0.4 x10^3/uL (0.0-1.1) 0.4 x10^3/uL (0.0-1.1) Eosinophils # (Auto) 0.2 x10^3/uL (0.0-0.7) 0.1 x10^3/uL (0.0-0.7) Basophils # (Auto) 0.0 x10^3/uL (0.0-0.2) 0.1 x10^3/uL (0.0-0.2) Thyroid Stimulating Hormone (TSH) 3.836 uIU/mL (0.358-3.74) Laboratory Tests Test 10/28/16 03:40 White Blood Count 5.4 x10^3/uL (4.0-11.0) Red Blood Count 4.50 x10^6/uL (3.50-5.40) Hemoglobin 14.3 g/dL (12.0-15.5) Hematocrit 42.6 % (36.0-47.0) Mean Corpuscular Volume 95 fL (79-100) Mean Corpuscular Hemoglobin 32 pg (25-35) Mean Corpuscular Hemoglobin Concent 34 g/dL (31-37) Red Cell Distribution Width 14.1 % (11.5-14.5) Platelet Count 186 x10^3/uL (140-400) Neutrophils (%) (Auto) 58 % (31-73) Lymphocytes (%) (Auto) 32 % (24-48) Monocytes (%) (Auto) 8 % (0-9) Eosinophils (%) (Auto) 2 % (0-3) Basophils (%) (Auto) 1 % (0-3) Neutrophils # (Auto) 3.1 x10^3uL (1.8-7.7) Lymphocytes # (Auto) 1.7 x10^3/uL (1.0-4.8) Monocytes # (Auto) 0.4 x10^3/uL (0.0-1.1) Eosinophils # (Auto) 0.1 x10^3/uL (0.0-0.7) Basophils # (Auto) 0.1 x10^3/uL (0.0-0.2) Sodium Level 142 mmol/L (136-145) Potassium Level 3.9 mmol/L (3.5-5.1) Chloride Level 106 mmol/L (98-107) Carbon Dioxide Level 29 mmol/L (21-32) Anion Gap 7 (6-14) Blood Urea Nitrogen 12 mg/dL (7-20) Creatinine 0.9 mg/dL (0.6-1.0) Estimated GFR (Cockcroft-Gault) 59.0 Glucose Level 103 mg/dL (70-99) Calcium Level 9.0 mg/dL (8.5-10.1) Thyroid Stimulating Hormone (TSH) 3.836 uIU/mL (0.358-3.74) Brief Hospital Course Ms. Banuelos is a 89 old [sex] who presented with [ ] Discharge Information Condition at Discharge: Stable Disposition/Orders: Other (to [facility]) Scheduled Acetaminophen (Tylenol), 1-2 TAB PO PRN, (Reported) Cholecalciferol (Vitamin D3) (Vitamin D3), 3,000 UNIT PO DAILY, (Reported) Dabigatran Etexilate Mesylate (Pradaxa), 75 MG PO BID Famotidine (Famotidine), 20 MG PO HS, (Reported) Furosemide (Lasix), 20 MG PO DAILY Lorazepam (Ativan), 0.5 MG PO BID, (Reported) Magnesium Oxide (Magnesium Oxide), 1 TAB PO DAILY, (Reported) Metoprolol Tartrate (Metoprolol Tartrate), 1 TAB PO BID, (Reported) Multivitamin With Minerals (Multivitamins With Minerals), 1 EACH PO DAILY, ( Reported) Sertraline Hcl (Sertraline Hcl), 50 MG PO HS, (Reported) Scheduled PRN Guaifenesin/Dextromethorphan (Guaifenesin Dm Syrup), 5 ML PO PRN Q4HRS PRN for COUGH, (Reported) Ondansetron Hcl (Zofran), 1 TAB PO PRN Q6HRS PRN for NAUSEA/VOMITING, (Reported) Discontinued Medications Calcium Carbonate/Vitamin D3 (Calcium 500 + Vit D 400 Tablet), 1 EACH PO DAILY, (Reported) Dabigatran Etexilate Mesylate (Pradaxa), 75 MG PO DAILY08, (Reported) Ergocalciferol (Vitamin D2) (Vitamin D2), 50,000 UNIT PO WEEKLY, (Reported) Metoprolol Tartrate (Metoprolol Tartrate), 1 TAB PO BID, (Reported) Multivitamin (Multivitamins), 1 TAB PO DAILY, (Reported) Ranitidine Hcl (Zantac), 1 TAB PO BID, (Reported) Sertraline Hcl (Zoloft), 150 MG PO DAILY, (Reported) Sertraline Hcl (Zoloft), 1 TAB PO DAILY, (Reported) Zolpidem Tartrate (Ambien), 1 TAB PO QHS, (Reported) Patient Instructions Patient Instructions to be seen by house physician. discontinue pradaxa LAEX SERRANO MD Oct 28, 2016 08:42
[2016-10-28] MEDS: METOPROLOL TART IMMED RELEASE 25 MG TABLET. PO SCH (09:00)
[2016-10-28 10:32] VITALS: BP 117/64
--- NOTE | 2016-10-28 13:08 | PDOC ---
Subjective: Subjective: Doing okay she thinks. Objective: Objective: Per RN - DC today, no further bleeding. Vital Signs: Vital Signs Date Time Temp Pulse Resp B/P (MAP) Pulse Ox O2 Delivery O2 Flow Rate FiO2 10/28/16 10:32 97.9 69 17 117/64 (81) 94 Room Air 97.9 Labs: Laboratory Tests Test 10/28/16 03:40 White Blood Count 5.4 x10^3/uL Red Blood Count 4.50 x10^6/uL Hemoglobin 14.3 g/dL Hematocrit 42.6 % Mean Corpuscular Volume 95 fL Mean Corpuscular Hemoglobin 32 pg Mean Corpuscular Hemoglobin Concent 34 g/dL Red Cell Distribution Width 14.1 % Platelet Count 186 x10^3/uL Neutrophils (%) (Auto) 58 % Lymphocytes (%) (Auto) 32 % Monocytes (%) (Auto) 8 % Eosinophils (%) (Auto) 2 % Basophils (%) (Auto) 1 % Neutrophils # (Auto) 3.1 x10^3uL Lymphocytes # (Auto) 1.7 x10^3/uL Monocytes # (Auto) 0.4 x10^3/uL Eosinophils # (Auto) 0.1 x10^3/uL Basophils # (Auto) 0.1 x10^3/uL Sodium Level 142 mmol/L Potassium Level 3.9 mmol/L Chloride Level 106 mmol/L Carbon Dioxide Level 29 mmol/L Anion Gap 7 Blood Urea Nitrogen 12 mg/dL Creatinine 0.9 mg/dL Estimated GFR (Cockcroft-Gault) 59.0 Glucose Level 103 mg/dL Calcium Level 9.0 mg/dL Thyroid Stimulating Hormone (TSH) 3.836 uIU/mL PE: GEN: NAD ABD: non-tender, LLQ ostomy w/ brown stool and air NEURO/PSYCH: awake/alert A/P: H/o colon cancer s/p colostomy w/ bleeding -bleeding resolved, Hgb remains WNL Elevated TSH -per primary -- Note DC plans, okay per GI. ANNALEE GAO Oct 28, 2016 13:08
== END 2016-10-28 14:30 | DRG 378 ==
LOC: ER 21:11 → 5 NORTH 22:55
PROVIDERS: ADMIT Internal Medicine; ATTEND Internal Medicine
DX: K92.2 Gastrointestinal hemorrhage, unspecified (principal); I50.32 Chronic diastolic (congestive) heart failure; F03.90 Unspecified dementia, unspecified severity, without behavioral disturbance, psychotic disturbance, mood disturbance, and anxiety; I11.0 Hypertensive heart disease with heart failure; I48.2 Chronic atrial fibrillation; K21.9 Gastro-esophageal reflux disease without esophagitis; M10.9 Gout, unspecified; M81.0 Age-related osteoporosis without current pathological fracture; Y83.3 Surgical operation with formation of external stoma as the cause of abnormal reaction of the patient, or of later complication, without mention of misadventure at the time of the procedure; Z85.048 Personal history of other malignant neoplasm of rectum, rectosigmoid junction, and anus; Z93.3 Colostomy status; Z87.440 Personal history of urinary (tract) infections; Z88.8 Allergy status to other drugs, medicaments and biological substances
CPT/HCPCS: 36415; 71010; 74022; 80048; 80053; 81001; 82274; 84443; 85027; 85610; 85730; 86850; 86900; 86901; 87086; 87641; 93005; A6539; J0690; J0696; J7030; J7040; 92610